=== PATIENT | female | born 1970 | race Hispanic/Latino ===

== ENCOUNTER → 2018-10-15 | Day surgery (SDC) | payer BC ==
[2018-10-14 16:13] LABS: ANION GAP 12.9 mmol/L (8-16); BLOOD UREA NITROGEN 11 mg/dL (7-26); BUN/CREATININE RATIO 16 (6-25); CALCIUM 9.5 mg/dL (8.4-10.2); CARBON DIOXIDE 26 mmol/L (22-29); CHLORIDE 105 mmol/L (98-107); CREATININE, SERUM 0.68 mg/dL (0.57-1.11); EST GLOMERULAR FILTRATION RATE > 60 ML/MIN (60-); GLUCOSE 84 mg/dL (74-118); POTASSIUM 3.9 mmol/L (3.5-5.1); SODIUM 140 mmol/L (136-145)
[~2018-10-15] MED LIST: CEFTRIAXONE SOD 1 GM/NS 50 ML 50 ML IV ONE; DEXAMETHASONE SOD PHOS INJ 4 MG/ML VIAL ONE; DIPHENHYDRAMINE HCL INJ 50 MG/ML VIAL ONE; FENTANYL CITRATE/PF 100MCG/2 ML INJ ONE; IOPAMIDOL 610MG/1ML 300 MG/ML VIAL IV ONE; LIDOCAINE HCL 2% JELLY 5 ML TUBE ONE; LIDOCAINE HCL 2% LOCAL INJ 5 ML SDV VIAL INJ ONE; METFORMIN HCL1000 MG PO; MIDAZOLAM HCL 2 MG/2 ML VIAL ONE; ONDANSETRON HCL INJ 2 MG/ML VIAL ONE; PROPOFOL IV EMULSION 10 MG/ML 20 ML VIAL ONE; SEVOFLURANE INHAL SOLN 250 ML PEN BTL ONE
[2018-10-15 12:00] VITALS: BP 136/88
--- NOTE | 2018-10-17 17:35 | Operative Report ---
DATE OF PROCEDURE: October 15, 2018 PREOPERATIVE DIAGNOSES 1. Chronic urinary tract infections. 2. Clinical signs and symptoms of interstitial cystitis. POSTOPERATIVE DIAGNOSES 1. Chronic urinary tract infections. 2. Clinical signs and symptoms of interstitial cystitis. OPERATIONS PERFORMED 1. Cystourethroscopy with hydrodistention (entirely seperate procedure for clinical signs and symptoms of interstitial cystitis). 2. Cystourethroscopy with left ureteral catheterization, left retrograde pyelogram (seperate procedure for chronic urinary tract infections). 3. Cystourethroscopy with right ureteral catheterization and right retrograde pyelogram (seperate procedure for multiple chronic urinary tract infections). 4. Supervision of fluoroscopy. 5. Interpretation of retrograde pyelography. ANESTHESIA: General. ESTIMATED BLOOD LOSS: Minimal. COMPLICATIONS: None. INDICATIONS FOR PROCEDURE: Ms. Jacobson is a very pleasant 48-year-old female with multiple chronic urinary tract infections. She and I had a long discussion about risks, benefits, and alternatives of doing nothing, ruling out interstitial cystitis, and attempting to find the cause of urinary tract infection. She voiced understanding of the options, alternatives, risks, and benefits and she elected to proceed. DETAILS OF PROCEDURE: After informed consent was obtained, the patient was taken to the operative suite. She was placed supine on the operating table. She underwent general anesthesia by anesthesia service. She was then placed in dorsal lithotomy position and sterilely prepped and draped in a fashion for cystoscopy. Grade II cystocele was noted. Panendoscopy of the bladder revealed no tumors and no stones. Both ureteral orifices were in normal anatomic location and position and good efflux of urine. Hydrodistention was performed to a capacity of 800 mL. No glomerulations, Herminio's ulcers, or stones. There was a grade III cystocele noted. Bilateral retrograde pyelograms were performed, which were normal. The bladder was drained. The patient was awakened from anesthesia and transported to recovery room in excellent condition. SUPERVISION OF FLUOROSCOPY AND INTERPRETATION OF RETROGRADE PYELOGRAPHY: I was present throughout the entire procedure and I supervised the use of fluoroscopy. There was no radiologist present at any time during this procedure. Attention was turned toward the left and right ureteral orifices, which were catheterized in a retrograde fashion. Contrast was injected and revealed delicate ureters and pelvicaliceal system, no evidence of filling defects, and no evidence of hydronephrosis. Impression, normal retrograde pyelogram. Job#: [id number] [id number]
== END | disposition home or self-care (01) ==
LOC: OR 08:40
PROVIDERS: ATTEND Urology
DX: N39.0 Urinary tract infection, site not specified (principal); N81.10 Cystocele, unspecified; Z01.810 Encounter for preprocedural cardiovascular examination; Z01.812 Encounter for preprocedural laboratory examination; Z79.84 Long term (current) use of oral hypoglycemic drugs
CPT/HCPCS: 36415 ×2; 52005; 74420; 80048; 82948; 93005; C1758; J0696; J1100; J1200; J2001 ×2; J2250; J2405; J2704; Q9967